=== PATIENT | male | born 1960 | race Caucasian/White ===

== ENCOUNTER 2016-12-15 09:28 | Day surgery (SDC) | payer MEDICAID ==
[2016-12-07 13:28] VITALS: BMI 36.3
[2016-12-15] MEDS ORDERED: Propofol 10 mg/ml Inj (20 ML) ONE ×2 (11:07→11:44)
[2016-12-15] MEDS ORDERED: Midazolam 2 MG/2 ML VIAL ONE (11:08)
[2016-12-15] MEDS ORDERED: Lidocaine 1% Inj (20ml) ONE (11:12)
[2016-12-15] MEDS ORDERED: ePHEDrine 50 mg/ml Inj ONE (11:46)
[2016-12-15] MEDS ORDERED: Sodium Chloride 0.9% 1,000 ML IV SCH (12:15)
[2016-12-15 12:21] VITALS: O2SAT 98
[2016-12-15 13:06] VITALS: BP 117/69; PULSE 59; RESP 16; TEMP 97.6
== END 2016-12-15 13:27 | disposition home or self-care (01) ==
LOC: ENDO 09:28
PROVIDERS: ATTEND Internal Medicine
DX: K20.9 Esophagitis, unspecified (principal); K44.9 Diaphragmatic hernia without obstruction or gangrene; K31.9 Disease of stomach and duodenum, unspecified; Z12.11 Encounter for screening for malignant neoplasm of colon; D12.2 Benign neoplasm of ascending colon; D12.4 Benign neoplasm of descending colon; D12.3 Benign neoplasm of transverse colon; K64.8 Other hemorrhoids; K29.50 Unspecified chronic gastritis without bleeding
CPT/HCPCS: 43239; 45380; 88305; 88342; J2250; J2704; J7040 ×2

== ENCOUNTER 2018-07-15 10:59 | Observation (INO) | payer MEDICAID ==
[2018-07-15 11:12] VITALS: BMI 37.7
--- NOTE | 2018-07-15 11:33 | ED PDOC ---
Arrival/HPI - General Chief Complaint: Chest Pain Historian: Patient - History of Present Illness Narrative History of Present Illness (Text): 07/15/18 11:14 A 58 year old male, whose past medical history includes hypertension, presents to the ED complaining of intermittent left sided chest pain for the past 2 months. Patient was sent in by Dr. Molina for an evaluation. Patient reports pain worsens when laying down, but is unchanged by exertion. Patient also denies any associated fevers, chills, headache, dizziness, shortness of breath, cough, abdominal pain, nausea, vomiting, diarrhea, back pain, neck pain, urinary/bowel changes, or any other complaints. PMD: Dr. Molina Time/Duration: > month (2 months) Symptom Onset: Gradual Symptom Course: Intermittent Activities at Onset: Light Context: Home Past Medical History - Provider Review Nursing Documentation Reviewed: Yes - Infectious Disease Hx of Infectious Diseases: None - Cardiac Hx Pacemaker: No - Neurological Hx Paralysis: No - Hematological/Oncological Hx Blood Transfusions: No Hx Blood Transfusion Reaction: No - Musculoskeletal/Rheumatological Hx Musculoskeletal Disorders: No - Gastrointestinal Hx Gastrointestinal Disorders: Yes Hx Gastritis: Yes - Psychiatric Hx Substance Use: No - Surgical History Hx Orthopedic Surgery: Yes (back and right leg) - Anesthesia Hx Anesthesia Reactions: No Hx Malignant Hyperthermia: No Family/Social History - Physician Review Nursing Documentation Reviewed: Yes Family/Social History: Unknown Family HX Smoking Status: Never Smoked Hx Alcohol Use: No (SOCIALLY) Hx Substance Use: No Allergies/Home Meds Allergies/Adverse Reactions: Allergies No Known Allergies Allergy (Verified 12/23/14 07:15) Home Medications: Home Meds Medication Instructions Recorded Confirmed Dorzolamide 2% [Trusopt] 1 drop OU BID 12/07/16 12/15/16 Benefiber 1 PO TID 12/15/16 Review of Systems - Review of Systems Constitutional: absent: Fevers Respiratory: absent: SOB Cardiovascular: Chest Pain. absent: Palpitations, Edema, Calf Pain, HOLLOWAY Gastrointestinal: absent: Abdominal Pain, Nausea Genitourinary Male: absent: Dysuria, Hematuria Musculoskeletal: absent: Back Pain Skin: absent: Rash Neurological: absent: Headache, Dizziness Endocrine: absent: Diaphoresis Psychiatric: absent: Anxiety, Depression Physical Exam - Physical Exam Narrative Physical Exam (Text): 07/15/18 11:35 Head: Atraumatic. Normocephalic. Eyes: PERRL. EOMI. Conjunctivae are not pale. ENT: Mucous membranes are moist and intact. Oropharynx is clear and symmetric. Neck: Supple. Full ROM. No JVD. No lymphadenopathy. No meningeal signs. Trachea midline. Cardiovascular: Regular rate. Regular rhythm. No murmurs, rubs, or gallops. Distal pulses are 2+ and symmetric. Pulmonary/Chest: No evidence of respiratory distress. Clear to auscultation bilaterally. No wheezing, rales or rhonchi. No tenderness to chest wall. Abdominal: Soft and non-distended. There is no tenderness. No rebound, guarding, or rigidity. No organomegaly. Good bowel sounds. Back: No CVA tenderness. No midline tenderness. Extremities: No edema. No cyanosis. No clubbing. Full range of motion in all extremities. No calf tenderness. Distal pulses intact. Skin: Skin is warm and dry. No petechiae. No purpura. Neurological: Alert, awake, and oriented. Motor and sensory exam intact. Psychiatric: Good eye contact. Normal interaction, affect, and behavior. Vital Signs Reviewed: Yes Vital Signs Temp Pulse Resp BP Pulse Ox 07/15/18 11:01 98.3 F 60 18 145/73 97 Temperature: Afebrile Blood Pressure: Hypertensive Pulse: Regular Respiratory Rate: Normal Appearance: Positive for: Well-Appearing, Non-Toxic, Comfortable Pain Distress: Mild Medical Decision Making ED Course and Treatment: 07/15/18 11:36 Impression: A 58 year old male who presents to the ED for intermittent left sided chest pain. Plan: -- EKG -- Labs -- Chest X-Ray -- Urinalysis -- Reassess and disposition Prior Visits: Notes and results from previous visits were reviewed. Patient was evaluated for chest pain several years ago, had ultrasound done at that time which I reviewed. Progress Notes: Patient is [place] speaking, nurse at bedside translates with his permission. He denies family hx of CAD, denies smoking, denies diabetes, reports hx of hypertension. Pain has been intermittent for several months, worse when laying down. He has not had cardiac evaluation in past. EKG unremarkable. Labs and cxr pending at this time. Patient denies calf pain, there is no hypoxia or associated shortness of breath, no pleuritic pain, no recent travel, no prolonged immobilization. 07/15/18 12:54 Chest X-Ray IMPRESSION: No active disease. - EKG Interpretation EKG Interpretation (Text): EKG at 11:15 normal sinus rhythm rate of 62 with minimal voltage criteria for lvh Interpreted by ED Physician: Yes Type: 12 lead EKG - Scribe Statement The provider has reviewed the documentation as recorded by the Alicia Rincon Provider Scribe Attestation: All medical record entries made by the Wilberibe were at my direction and personally dictated by me. I have reviewed the chart and agree that the record accurately reflects my personal performance of the history, physical exam, medical decision making, and the department course for this patient. I have also personally directed, reviewed, and agree with the discharge instructions and disposition. Disposition/Present on Arrival - Present on Arrival Any Indicators Present on Arrival: No History of DVT/PE: No History of Uncontrolled Diabetes: No Urinary Catheter: No History of Decub. Ulcer: No History Surgical Site Infection Following: None - Disposition Have Diagnosis and Disposition been Completed?: Yes Diagnosis: Chest pain Disposition: HOSPITALIZED Disposition Time: 13:01 Patient Plan: Admission, Observation, Telemetry Condition: FAIR Discharge Instructions (ExitCare): Chest Pain (ED) Forms: [employer] ([place]ican)
[2018-07-15 11:44] LABS: BASO # 0.03 K/mm3 (0.0-2.0); BASO % 0.3 % (0.0-3.0); EOS # 0.1 (0.0-0.7); EOS % 1.4 % (1.5-5.0); HEMOGLOBIN 12.8 g/dL (14.0-18.0); LYMPH # 3.7 (1.2-3.4); LYMPH % 37.1 % (22.0-35.0); MEAN CELL VOLUME 86.9 fl (80.0-105.0); MEAN CORPUSCULAR HEMOGLOBIN 28.4 pg (25.0-35.0); MEAN CORPUSCULAR HGB CONC 32.7 g/dl (31.0-37.0); MEAN PLATELET VOLUME 10.5 fl (7.0-11.0); RBC 4.51 10^6/uL (3.5-6.1); RED CELL DISTRIBUTION WIDTH 15.1 % (11.5-14.5)
[2018-07-15 11:53] LABS: ALB/GLOB RATIO 1.1 (1.1-1.8); ALBUMIN 4.1 g/dL (3.0-4.8); ALT/SGPT 14 U/L (7-56); AMYLASE 76 U/L (35-125); AST/SGOT 27 U/L (17-59); BLOOD UREA NITROGEN 16 mg/dL (7-21); CALCIUM 9.4 mg/dL (8.4-10.5); GFR NON-AFRICAN AMERICAN > 60; INR 1.14; LIPASE 65 U/L (23-300); PARTIAL THROMBOPLASTIN TIME 26.3 Seconds (26.9-38.3); PROTHROMBIN TIME 12.9 SECONDS (9.4-12.5)
[2018-07-15 12:05] LABS: TROPONIN I < 0.01 ng/mL
--- NOTE | 2018-07-15 12:15 | RAD ---
Date of service: 07/15/2018 HISTORY: chest pain COMPARISON: 12/23/2014 TECHNIQUE: 1 view obtained. FINDINGS: LUNGS: No active pulmonary disease. PLEURA: No significant pleural effusion identified, no pneumothorax apparent. CARDIOVASCULAR: No aortic atherosclerotic calcification present. Normal cardiac size. No pulmonary vascular congestion. OSSEOUS STRUCTURES: No significant abnormalities. VISUALIZED UPPER ABDOMEN: Normal. OTHER FINDINGS: None. IMPRESSION: No active disease.
--- NOTE | 2018-07-15 15:27 | CP.PCM.HP ---
<Ramiro Ferrari - Last Filed: 07/15/18 15:20> History of Present Illness - History of Present Illness History of Present Illness: H&P for Dr. Mason CC: Chest Pain Patient is a 58 yo Frisian-speaking male with PMH of HTN, glaucoma, HLD, and GERD [place] [facility] [place] for the last 2-3 months. Patient was seen by his PMD, Dr. Molina, today, who instructed him to proceed to the ED. Patient states that chest pain is left sided, pressure-like, but does not radiate. Patient states the pain only occurs at night when he lies down flat, but does not wake up with chest pain. Patient states that he sometimes wakes up coughing in the middle of the night, but goes away when he drinks water. He states the dry cough over has been intermittent over the last 2 months. Patient denies any dyspnea on exertion, but is unable to walk more than 3 blocks due to pain in his ankles from past surgery for flat feet. Patient admits to some abdominal pain, which he attributes to GERD. Patient denies SOB, n/v/d, fever, chills, diaphoresis, DUENAS, dizziness, fatigue, or palpitations. PMD: Jesse PMH: HTN, glaucoma, HLD, GERD Surg: B/l feet surgery, retinal surgery, cyst removal from back All: NKDA SH: Admits to social EtOH use; denied tobacco or illicit drug use FHx: DM Medications: Protonix, Lipitor, Latanoprost, Dorzolomide/Timolol, Lisinopril/HCTZ Present on Admission - Present on Admission Any Indicators Present on Admission: No Review of Systems - Review of Systems All systems: reviewed and no additional remarkable complaints except (12 point ROS reviewed and is negative other than what is stated in HPI.) Past Patient History - Infectious Disease Hx of Infectious Diseases: None - Past Medical History & Family History Past Medical History?: Yes - Past Social History Smoking Status: Never Smoked - CARDIAC Hx Pacemaker: No - NEUROLOGICAL Hx Paralysis: No - HEMATOLOGICAL/ONCOLOGICAL Hx Blood Transfusions: No Hx Blood Transfusion Reaction: No - MUSCULOSKELETAL/RHEUMATOLOGICAL Hx Musculoskeletal Disorders: No - GASTROINTESTINAL Hx Gastrointestinal Disorders: Yes Hx Gastritis: Yes - PSYCHIATRIC Hx Substance Use: No - SURGICAL HISTORY Hx Orthopedic Surgery: Yes (back and right leg) - ANESTHESIA Hx Anesthesia Reactions: No Hx Malignant Hyperthermia: No Meds Allergies/Adverse Reactions: Allergies Allergy/AdvReac Type Severity Reaction Status Date / Time No Known Allergies Allergy Verified 12/23/14 07:15 Physical Exam - Constitutional Appears: No Acute Distress - Head Exam Head Exam: ATRAUMATIC, NORMAL INSPECTION, NORMOCEPHALIC - Eye Exam Eye Exam: EOMI, Normal appearance Pupil Exam: NORMAL ACCOMODATION, PERRL - ENT Exam ENT Exam: Mucous Membranes Moist, Normal Exam - Neck Exam Neck exam: Positive for: Normal Inspection - Respiratory Exam Respiratory Exam: Clear to Auscultation Bilateral. absent: Rales, Rhonchi, Wheezes - Cardiovascular Exam Cardiovascular Exam: RRR, +S1, +S2. absent: Clicks, Diastolic murmur, Gallop, Rubs, Systolic Murmur - GI/Abdominal Exam GI & Abdominal Exam: Soft, Tenderness (RUQ). absent: Distended, Guarding, Rebound - Extremities Exam Extremities exam: Positive for: pedal edema (1+ b/l) - Back Exam Back exam: NORMAL INSPECTION - Neurological Exam Neurological exam: Alert, CN II-XII Intact, Oriented x3 - Psychiatric Exam Psychiatric exam: Normal Affect, Normal Mood - Skin Skin Exam: Dry, Intact, Normal Color, Warm Results - Vital Signs Recent Vital Signs: Last Vital Signs Temp 98.3 F 07/15/18 11:01 Pulse 60 07/15/18 11:01 Resp 18 07/15/18 11:01 BP 145/73 07/15/18 11:01 Pulse Ox 97 07/15/18 11:01 - Labs Result Diagrams: 07/15/18 11:32 07/15/18 11:32 Labs: Laboratory Results - last 24 hr 07/15/18 07/15/18 07/15/18 11:32 11:32 11:32 WBC 10.0 RBC 4.51 Hgb 12.8 L Hct 39.2 L MCV 86.9 MCH 28.4 MCHC 32.7 RDW 15.1 H Plt Count 295 MPV 10.5 Neut % (Auto) 51.2 Lymph % (Auto) 37.1 H Faulk % (Auto) 10.0 H Eos % (Auto) 1.4 L Baso % (Auto) 0.3 Lymph # (Auto) 3.7 H Faulk # (Auto) 1.0 H Eos # (Auto) 0.1 Baso # (Auto) 0.03 Absolute Neuts (auto) 5.15 PT 12.9 H INR 1.14 APTT 26.3 L Sodium 141 Potassium 3.6 Chloride 104 Carbon Dioxide 29 Anion Gap 11 BUN 16 Creatinine 0.9 Est GFR ( Amer) > 60 Est GFR (Non-Af Amer) > 60 Random Glucose 83 Calcium 9.4 Magnesium 1.9 Total Bilirubin 0.2 AST 27 ALT 14 Alkaline Phosphatase 76 Lactate Dehydrogenase 428 Total Creatine Kinase 147 Troponin I < 0.01 NT-Pro-B Natriuret Pep 12.0 Total Protein 7.8 Albumin 4.1 Globulin 3.8 Albumin/Globulin Ratio 1.1 Amylase 76 Lipase 65 Assessment & Plan - Assessment and Plan (Free Text) Assessment: 58 yo M with PMH of HTN, HLD, glaucoma, and GERD will be admitted for evaluation and treatment for chest pain to rule out acute coronary syndrome. Plan: 1. Chest Pain - Will r/o ACS - EKG showed NSR, rate 62, LVH - Troponin negative x1, will trend x2 - CXR negative - Echo (2013) showed EF 62%, will obtain new Echo - TSH, lipid panel, HgbA1c ordered - Cont Lipitor - ASA 81 mg - Cardiology consulted 2. Abdominal pain - RUQ tenderness - LFT WNL - RUQ US ordered 3. HTN - Cont home Lisinopril/HCTZ 4. HLD - Cont home Lipitor 5. GERD - Cont home Protonix 6. Glaucoma - Cont home Latanoprost and Dorzolomide/Timolol GI/DVT PPx - Lovenox - Protonix Patient seen and discussed in detail with Dr. Mason. Franklin Ferrari DO PGY2 <Regulo Mason - Last Filed: 07/16/18 14:01> Results - Vital Signs Recent Vital Signs: Last Vital Signs Temp 97.5 F L 07/16/18 08:59 Pulse 61 07/16/18 10:00 Resp 20 07/16/18 08:59 BP 149/64 07/16/18 09:41 Pulse Ox 96 07/16/18 08:59 - Labs Result Diagrams: 07/16/18 05:00 07/16/18 05:00 Labs: Laboratory Results - last 24 hr 07/15/18 07/15/18 07/15/18 15:48 17:20 17:20 WBC RBC Hgb Hct MCV MCH MCHC RDW Plt Count MPV Neut % (Auto) Lymph % (Auto) Faulk % (Auto) Eos % (Auto) Baso % (Auto) Lymph # (Auto) Faulk # (Auto) Eos # (Auto) Baso # (Auto) Absolute Neuts (auto) Sodium Potassium Chloride Carbon Dioxide Anion Gap BUN Creatinine Est GFR ( Amer) Est GFR (Non-Af Amer) Random Glucose Hemoglobin A1c Calcium Phosphorus Magnesium Total Bilirubin AST ALT Alkaline Phosphatase Troponin I 0.01 Total Protein Albumin Globulin Albumin/Globulin Ratio Triglycerides Cholesterol LDL Cholesterol Direct HDL Cholesterol TSH 3rd Generation 2.09 Urine Color Yellow Urine Appearance Clear Urine pH 7.0 Ur Specific [place] 1.015 Urine Protein Negative Urine Glucose (UA) Negative Urine Ketones Negative Urine Blood Small H Urine Nitrate Negative Urine Bilirubin Negative Urine Urobilinogen 0.2 Ur Leukocyte Esterase Negative Urine RBC 2 - 5 H Urine WBC 0 - 2 Ur Epithelial Cells 0 - 2 07/15/18 07/15/18 07/16/18 17:30 23:30 05:00 WBC 8.6 RBC 4.50 Hgb 12.6 L Hct 39.4 L MCV 87.6 MCH 28.0 MCHC 32.0 RDW 15.1 H Plt Count 280 MPV 10.7 Neut % (Auto) 50.5 Lymph % (Auto) 38.7 H Faulk % (Auto) 9.0 H Eos % (Auto) 1.5 Baso % (Auto) 0.3 Lymph # (Auto) 3.3 Faulk # (Auto) 0.8 H Eos # (Auto) 0.1 Baso # (Auto) 0.03 Absolute Neuts (auto) 4.33 Sodium Potassium Chloride Carbon Dioxide Anion Gap BUN Creatinine Est GFR ( Amer) Est GFR (Non-Af Amer) Random Glucose Hemoglobin A1c 6.1 Calcium Phosphorus Magnesium Total Bilirubin AST ALT Alkaline Phosphatase Troponin I 0.02 D Total Protein Albumin Globulin Albumin/Globulin Ratio Triglycerides Cholesterol LDL Cholesterol Direct HDL Cholesterol TSH 3rd Generation Urine Color Urine Appearance Urine pH Ur Specific [place] Urine Protein Urine Glucose (UA) Urine Ketones Urine Blood Urine Nitrate Urine Bilirubin Urine Urobilinogen Ur Leukocyte Esterase Urine RBC Urine WBC Ur Epithelial Cells 07/16/18 05:00 WBC RBC Hgb Hct MCV MCH MCHC RDW Plt Count MPV Neut % (Auto) Lymph % (Auto) Faulk % (Auto) Eos % (Auto) Baso % (Auto) Lymph # (Auto) Faulk # (Auto) Eos # (Auto) Baso # (Auto) Absolute Neuts (auto) Sodium 139 Potassium 3.7 Chloride 104 Carbon Dioxide 30 Anion Gap 9 L BUN 13 Creatinine 0.9 Est GFR ( Amer) > 60 Est GFR (Non-Af Amer) > 60 Random Glucose 97 Hemoglobin A1c Calcium 9.0 Phosphorus 3.3 Magnesium 1.9 Total Bilirubin 0.4 AST 32 ALT 21 Alkaline Phosphatase 79 Troponin I Total Protein 7.3 Albumin 3.7 Globulin 3.6 Albumin/Globulin Ratio 1.0 L Triglycerides 157 Cholesterol 194 LDL Cholesterol Direct 133 H HDL Cholesterol 31 TSH 3rd Generation Urine Color Urine Appearance Urine pH Ur Specific [place] Urine Protein Urine Glucose (UA) Urine Ketones Urine Blood Urine Nitrate Urine Bilirubin Urine Urobilinogen Ur Leukocyte Esterase Urine RBC Urine WBC Ur Epithelial Cells Attending/Attestation - Attestation I have personally seen and examined this patient.: Yes I have fully participated in the care of the patient.: Yes I have reviewed all pertinent clinical information: Yes Notes (Text): 07/16/18 13:59 Medical record note made by the resident after discussion with my direction and input after the patient was personally seen and examined by me. I have reviewed the chart and agree that the record accurately reflects by personal performance of the history, physical exam, data review, and medical decision-making, in the course for the patient. I have also personally directed the plan of care. 58 year obese old male with past medical history of hypertension, glaucoma, hyperlipidemia, GERD, bilateral feet surgery, is admitted with atypical chest pain.EKG is negative for ischemic changes.We will get serial troponins and will monitor patient in telemetry for arrhythmia. We will also get Echo and cardiology consult. Management plan was discussed in detail with patient. Education was provided.
[2018-07-15 15:57] LABS: URINE BILIRUBIN NEGATIVE (NEGATIVE); URINE BLOOD SMALL (NEGATIVE); URINE GLUCOSE (UA) NEGATIVE (NEGATIVE); URINE LEUKOCYTE ESTERASE NEGATIVE Leu/uL (NEGATIVE); URINE PROTEIN NEGATIVE mg/dL (<30 mg/dL); URINE UROBILINOGEN 0.2 E.U./dL (<1 E.U./dL)
[2018-07-15 15:59] LABS: URINE APPEARANCE CLEAR (CLEAR); URINE COLOR YELLOW (YELLOW)
[2018-07-15 16:05] LABS: URINE EPITHELIAL CELLS 0 - 2 /hpf (0-5); URINE WBC 0 - 2 /hpf (0-6)
[2018-07-15] MEDS: Dorzolamide 2% Opht Sol 10ml OU SCH (17:16)
[2018-07-15] MEDS ORDERED: Dorzolamide 2%/Timolol 0.5% 100 DROP/10 ML BOTTLE OU SCH (18:00)
--- NOTE | 2018-07-15 18:16 | US ---
Date of service: 07/15/2018 HISTORY: RUQ pain COMPARISON: None available TECHNIQUE: Sonographic evaluation of the right upper quadrant of the abdomen. FINDINGS: Examination markedly limited by habitus. LIVER: Measures 17 cm in length.Echogenic liver may be seen in setting of hepatic parenchymal disease or fatty infiltration. No focal hepatic mass identified. The main portal vein appears patent with normal directional flow. No intrahepatic bile duct dilatation. GALLBLADDER: No gallstones. No gallbladder wall thickening or pericholecystic edema. Negative sonographic Ellington's sign as assessed by the agile qa tester. COMMON BILE DUCT: Measures 6 mm. PANCREAS: Not well-visualized. RIGHT KIDNEY: Measures approximately 12.8 x 5.4 x 6.0 cm. No obstructing calculus or hydronephrosis identified. Two lower pole cysts evident measuring approximately 2.4 cm and 3.9 cm in maximum dimensions. AORTA: Limited visualization appears grossly unremarkable. IVC: Limited visualization appears grossly unremarkable. OTHER FINDINGS: None . IMPRESSION: Examination markedly limited by habitus. Echogenic liver may be seen in setting of hepatic parenchymal disease or fatty infiltration. Right renal cyst measuring approximately 2.4 cm and 3.9 cm arising from the lower pole.
[2018-07-15 18:18] VITALS: RESP 20
--- NOTE | 2018-07-15 22:14 | CARD ---
APPROVED REPORT Date of service: 07/15/2018 EKG Measurement Heart [id number] <Conclusion> Normal sinus rhythm Minimal voltage criteria for LVH, may be normal variant Borderline ECG
[2018-07-15] MEDS ORDERED: Pneumococcal 23-Valent Vaccine IM ONE (22:24)
[2018-07-16] MEDS ORDERED: Pantoprazole 40 mg EC Tab PO SCH ×2 (06:00)
[2018-07-16 07:05] LABS: BASO # 0.03 K/mm3 (0.0-2.0); BASO % 0.3 % (0.0-3.0); EOS # 0.1 (0.0-0.7); EOS % 1.5 % (1.5-5.0); HEMOGLOBIN 12.6 g/dL (14.0-18.0); LYMPH # 3.3 (1.2-3.4); LYMPH % 38.7 % (22.0-35.0); MEAN CELL VOLUME 87.6 fl (80.0-105.0); MEAN PLATELET VOLUME 10.7 fl (7.0-11.0); MONO # 0.8 (0.1-0.6); RBC 4.5 10^6/uL (3.5-6.1); RED CELL DISTRIBUTION WIDTH 15.1 % (11.5-14.5); WHITE BLOOD COUNT 8.6 10^3/uL (4.5-11.0)
[2018-07-16 07:23] LABS: ALBUMIN 3.7 g/dL (3.0-4.8); ALT/SGPT 21 U/L (7-56); AST/SGOT 32 U/L (17-59); BLOOD UREA NITROGEN 13 mg/dL (7-21); GFR NON-AFRICAN AMERICAN > 60; HDL CHOLESTEROL 31 mg/dL (29-60)
[2018-07-16 07:25] LABS: LDL CHOLESTEROL 133 mg/dL (0-129)
[2018-07-16 09:00] VITALS: TEMP 97.5; O2SAT 96
[2018-07-16] MEDS: Dorzolamide 2% Opht Sol 10ml OU SCH (09:41)
[2018-07-16 09:42] VITALS: BP 149/64
[2018-07-16] MEDS ORDERED: Enoxaparin 40 mg Syringe SC SCH (10:00)
--- NOTE | 2018-07-16 11:47 | CP.PCM.CON ---
History of Present Illness - History of Present Illness History of Present Illness: Awake, alert, denies chest pain Reason for consultation: Cardiac evaluation of chest pain Brief history of present illness: A 58 year obese old male, armenian speaking, who came in to the ER due to left sided chest pressure, non radiating off and on for the last 2-3 months. Pain at site is reproducible. History of hypertension, glaucoma, hyperlipidemia, GERD, bilateral feet surgery, retinal surgery cyst removal from back. Denies smoking. Socially drinks alcohol. Seen and examined by me and Dr. Millan Review of Systems - Review of Systems All systems: reviewed and no additional remarkable complaints except Review of Systems: as per HPI Past Patient History - Infectious Disease Hx of Infectious Diseases: None - Past Medical History & Family History Past Medical History?: Yes - Past Social History Smoking Status: Never Smoked - CARDIAC Hx Cardiac Disorders: Yes Hx Hypercholesterolemia: Yes Hx Pacemaker: No - PULMONARY Hx Respiratory Disorders: No - NEUROLOGICAL Hx Neurological Disorder: No - HEENT Hx HEENT Problems: Yes (eyeglasses) Hx Glaucoma: Yes (sx both eyes) Other/Comment: detached retina - RENAL Hx Chronic Kidney Disease: No - ENDOCRINE/METABOLIC Hx Endocrine Disorders: No - HEMATOLOGICAL/ONCOLOGICAL Hx Blood Disorders: No - INTEGUMENTARY Hx Dermatological Problems: Yes Other/Comment: thick toenails, surgical scars to both inner r and left foot - MUSCULOSKELETAL/RHEUMATOLOGICAL Hx Falls: No - GASTROINTESTINAL Hx Gastrointestinal Disorders: Yes (obese, gastritis) - GENITOURINARY/GYNECOLOGICAL Hx Genitourinary Disorders: No - PSYCHIATRIC Hx Substance Use: No - SURGICAL HISTORY Hx Surgeries: Yes Hx Orthopedic Surgery: Yes (back and right leg) Other/Comment: sx to both feet - ANESTHESIA Hx Anesthesia Reactions: No Hx Malignant Hyperthermia: No Meds Allergies/Adverse Reactions: Allergies Allergy/AdvReac Type Severity Reaction Status Date / Time No Known Allergies Allergy Verified 12/23/14 07:15 - Medications Medications: Current Medications Aspirin (Ecotrin) 81 mg PO DAILY [facility] Last Admin: 07/16/18 09:40 Dose: 81 mg Atorvastatin Calcium (Lipitor) 40 mg PO DIN [facility] Dorzolamide HCl (Trusopt) 0 ml OU TID [facility] Last Admin: 07/16/18 09:41 Dose: 1 drop Enoxaparin Sodium (Lovenox) 40 mg SC DAILY [facility]; Protocol Last Admin: 07/16/18 09:40 Dose: 40 mg Hydrochlorothiazide (Microzide) 12.5 mg PO DAILY [facility] Last Admin: 07/16/18 09:41 Dose: 12.5 mg Latanoprost (Xalatan Opht) 0 ml OU HS [facility] Lisinopril (Zestril) 10 mg PO DAILY [facility] Last Admin: 07/16/18 09:41 Dose: 10 mg Pantoprazole Sodium (Protonix Ec Tab) 40 mg PO 0600 [facility] Last Admin: 07/16/18 05:31 Dose: 40 mg Timolol Maleate (Timoptic 0.5% Ophth Soln) 0 drop OU BID [facility] Last Admin: 07/16/18 09:41 Dose: 1 drop Physical Exam - Constitutional Appears: Non-toxic, No Acute Distress - Head Exam Head Exam: NORMAL INSPECTION, NORMOCEPHALIC - Eye Exam Eye Exam: Normal appearance Pupil Exam: NORMAL ACCOMODATION - ENT Exam ENT Exam: Mucous Membranes Moist, Normal Exam - Respiratory Exam Respiratory Exam: Decreased Breath Sounds, Clear to Auscultation Bilateral, NORMAL BREATHING PATTERN - Cardiovascular Exam Cardiovascular Exam: Bradycardia, +S1, +S2 Additional comments: denies chest pain left chest with tenderness - GI/Abdominal Exam GI & Abdominal Exam: Normal Bowel Sounds, Soft - Neurological Exam Neurological exam: Alert, Oriented x3 - Psychiatric Exam Psychiatric exam: Normal Affect, Normal Mood - Skin Skin Exam: Dry, Normal Color, Warm Results - Vital Signs Recent Vital Signs: Last Vital Signs Temp 97.5 F L 07/16/18 08:59 Pulse 64 07/16/18 09:41 Resp 20 07/16/18 08:59 BP 149/64 07/16/18 09:41 Pulse Ox 96 07/16/18 08:59 - Labs Result Diagrams: 07/16/18 05:00 07/16/18 05:00 Labs: Laboratory Results - last 24 hr 07/15/18 07/15/18 07/15/18 11:32 11:32 11:32 WBC 10.0 RBC 4.51 Hgb 12.8 L Hct 39.2 L MCV 86.9 MCH 28.4 MCHC 32.7 RDW 15.1 H Plt Count 295 MPV 10.5 Neut % (Auto) 51.2 Lymph % (Auto) 37.1 H Lyon % (Auto) 10.0 H Eos % (Auto) 1.4 L Baso % (Auto) 0.3 Lymph # (Auto) 3.7 H Lyon # (Auto) 1.0 H Eos # (Auto) 0.1 Baso # (Auto) 0.03 Absolute Neuts (auto) 5.15 PT 12.9 H INR 1.14 APTT 26.3 L Sodium 141 Potassium 3.6 Chloride 104 Carbon Dioxide 29 Anion Gap 11 BUN 16 Creatinine 0.9 Est GFR ( Amer) > 60 Est GFR (Non-Af Amer) > 60 Random Glucose 83 Hemoglobin A1c Calcium 9.4 Phosphorus Magnesium 1.9 Total Bilirubin 0.2 AST 27 ALT 14 Alkaline Phosphatase 76 Lactate Dehydrogenase 428 Total Creatine Kinase 147 Troponin I < 0.01 NT-Pro-B Natriuret Pep 12.0 Total Protein 7.8 Albumin 4.1 Globulin 3.8 Albumin/Globulin Ratio 1.1 Triglycerides Cholesterol LDL Cholesterol Direct HDL Cholesterol Amylase 76 Lipase 65 TSH 3rd Generation Urine Color Urine Appearance Urine pH Ur Specific [place] Urine Protein Urine Glucose (UA) Urine Ketones Urine Blood Urine Nitrate Urine Bilirubin Urine Urobilinogen Ur Leukocyte Esterase Urine RBC Urine WBC Ur Epithelial Cells 07/15/18 07/15/18 07/15/18 15:48 17:20 17:20 WBC RBC Hgb Hct MCV MCH MCHC RDW Plt Count MPV Neut % (Auto) Lymph % (Auto) Lyon % (Auto) Eos % (Auto) Baso % (Auto) Lymph # (Auto) Lyon # (Auto) Eos # (Auto) Baso # (Auto) Absolute Neuts (auto) PT INR APTT Sodium Potassium Chloride Carbon Dioxide Anion Gap BUN Creatinine Est GFR ( Amer) Est GFR (Non-Af Amer) Random Glucose Hemoglobin A1c Calcium Phosphorus Magnesium Total Bilirubin AST ALT Alkaline Phosphatase Lactate Dehydrogenase Total Creatine Kinase Troponin I 0.01 NT-Pro-B Natriuret Pep Total Protein Albumin Globulin Albumin/Globulin Ratio Triglycerides Cholesterol LDL Cholesterol Direct HDL Cholesterol Amylase Lipase TSH 3rd Generation 2.09 Urine Color Yellow Urine Appearance Clear Urine pH 7.0 Ur Specific [place] 1.015 Urine Protein Negative Urine Glucose (UA) Negative Urine Ketones Negative Urine Blood Small H Urine Nitrate Negative Urine Bilirubin Negative Urine Urobilinogen 0.2 Ur Leukocyte Esterase Negative Urine RBC 2 - 5 H Urine WBC 0 - 2 Ur Epithelial Cells 0 - 2 07/15/18 07/15/18 07/16/18 17:30 23:30 05:00 WBC 8.6 RBC 4.50 Hgb 12.6 L Hct 39.4 L MCV 87.6 MCH 28.0 MCHC 32.0 RDW 15.1 H Plt Count 280 MPV 10.7 Neut % (Auto) 50.5 Lymph % (Auto) 38.7 H Lyon % (Auto) 9.0 H Eos % (Auto) 1.5 Baso % (Auto) 0.3 Lymph # (Auto) 3.3 Lyon # (Auto) 0.8 H Eos # (Auto) 0.1 Baso # (Auto) 0.03 Absolute Neuts (auto) 4.33 PT INR APTT Sodium Potassium Chloride Carbon Dioxide Anion Gap BUN Creatinine Est GFR ( Amer) Est GFR (Non-Af Amer) Random Glucose Hemoglobin A1c 6.1 Calcium Phosphorus Magnesium Total Bilirubin AST ALT Alkaline Phosphatase Lactate Dehydrogenase Total Creatine Kinase Troponin I 0.02 D NT-Pro-B Natriuret Pep Total Protein Albumin Globulin Albumin/Globulin Ratio Triglycerides Cholesterol LDL Cholesterol Direct HDL Cholesterol Amylase Lipase TSH 3rd Generation Urine Color Urine Appearance Urine pH Ur Specific [place] Urine Protein Urine Glucose (UA) Urine Ketones Urine Blood Urine Nitrate Urine Bilirubin Urine Urobilinogen Ur Leukocyte Esterase Urine RBC Urine WBC Ur Epithelial Cells 07/16/18 05:00 WBC RBC Hgb Hct MCV MCH MCHC RDW Plt Count MPV Neut % (Auto) Lymph % (Auto) Lyon % (Auto) Eos % (Auto) Baso % (Auto) Lymph # (Auto) Lyon # (Auto) Eos # (Auto) Baso # (Auto) Absolute Neuts (auto) PT INR APTT Sodium 139 Potassium 3.7 Chloride 104 Carbon Dioxide 30 Anion Gap 9 L BUN 13 Creatinine 0.9 Est GFR ( Amer) > 60 Est GFR (Non-Af Amer) > 60 Random Glucose 97 Hemoglobin A1c Calcium 9.0 Phosphorus 3.3 Magnesium 1.9 Total Bilirubin 0.4 AST 32 ALT 21 Alkaline Phosphatase 79 Lactate Dehydrogenase Total Creatine Kinase Troponin I NT-Pro-B Natriuret Pep Total Protein 7.3 Albumin 3.7 Globulin 3.6 Albumin/Globulin Ratio 1.0 L Triglycerides 157 Cholesterol 194 LDL Cholesterol Direct 133 H HDL Cholesterol 31 Amylase Lipase TSH 3rd Generation Urine Color Urine Appearance Urine pH Ur Specific [place] Urine Protein Urine Glucose (UA) Urine Ketones Urine Blood Urine Nitrate Urine Bilirubin Urine Urobilinogen Ur Leukocyte Esterase Urine RBC Urine WBC Ur Epithelial Cells Assessment & Plan - Assessment and Plan (Free Text) Assessment: Brief history of present illness: A 58 year obese old male, armenian speaking, who came in to the ER due to left sided chest pressure, non radiating off and on for the last 2-3 months.. History of hypertension, glaucoma, hyperlipidemia, GERD, bilateral feet surgery, retinal surgery cyst removal from back. Denies smoking. Socially drinks alcohol. Troponin negative x 3. EKG showed normal sinus rhythm, no ischemia. Chest X ray unremarkable. Had stress test on 12/15/13 with normal results. No previous echo done, will order Echo today to evaluate LV function. Chest pressure musculoskeletal in nature. Pain reproducible. NSAID PRN. Rule out acute coronary syndrome. Out patient stress for risk stratific ation. Consider GI work up. Cardiac status stable. Discontinue telemetry. May discharge home from cardiac standpoint. Plan: Denies chest pain NSAID PRN for musculoskeletal chest pressure Out patient stress for risk stratification Consider GI work up. Cardiac status stable On ASA 81 mg daily,Lipitor 40 mg daily, Lovenox 40 mg daily Lisinopril 10 mg daily Heart rate stable Blood pressure stable Discontinue telemetry Continue current treatment Continue current medications May discharge home from cardiac standpoint. Will follow up Plan and treatment discussed with Dr. Millan Thank you Dr. Worthington for the opportunity of taking care Tigre Claros - Date & Time Date: 07/16/18 Time: 07:15
--- NOTE | 2018-07-16 13:22 | CP.PCM.DIS ---
<Sd Trujillo - Last Filed: 07/16/18 13:17> Provider - Provider Date of Admission: 07/15/18 13:59 Attending physician: David Worthington MD Consults: 07/15/18 15:05 Cardiology Consult Routine Comment: Consulting Provider: Regulo Millan Consulting Physician: Regulo Millan Reason for Consult: chest pain 07/15/18 22:09 Social Work Referral Routine Comment: d/c plan Physician Instructions: Reason For Exam: assess 07/15/18 22:24 Inpatient WASH HELPER Core Measures Referral Routine Comment: cp Physician Instructions: Reason For Exam: assess Transition In Care/Readmission Reduction Routine Comment: cp Physician Instructions: Reason For Exam: assess Time Spent in preparation of Discharge (in minutes): 35 Hospital Course - Lab Results Lab Results: Most Recent Lab Values WBC 8.6 10^3/uL (4.5-11.0) 07/16/18 05:00 RBC 4.50 10^6/uL (3.5-6.1) 07/16/18 05:00 Hgb 12.6 g/dL (14.0-18.0) L 07/16/18 05:00 Hct 39.4 % (42.0-52.0) L 07/16/18 05:00 MCV 87.6 fl (80.0-105.0) 07/16/18 05:00 MCH 28.0 pg (25.0-35.0) 07/16/18 05:00 MCHC 32.0 g/dl (31.0-37.0) 07/16/18 05:00 RDW 15.1 % (11.5-14.5) H 07/16/18 05:00 Plt Count 280 10^3/uL (120.0-450.0) 07/16/18 05:00 MPV 10.7 fl (7.0-11.0) 07/16/18 05:00 Neut % (Auto) 50.5 % (50.0-68.0) 07/16/18 05:00 Lymph % (Auto) 38.7 % (22.0-35.0) H 07/16/18 05:00 [place] % (Auto) 9.0 % (1.0-6.0) H 07/16/18 05:00 Eos % (Auto) 1.5 % (1.5-5.0) 07/16/18 05:00 Baso % (Auto) 0.3 % (0.0-3.0) 07/16/18 05:00 Lymph # (Auto) 3.3 (1.2-3.4) 07/16/18 05:00 Isabel[place] # (Auto) 0.8 (0.1-0.6) H 07/16/18 05:00 Eos # (Auto) 0.1 (0.0-0.7) 07/16/18 05:00 Baso # (Auto) 0.03 K/mm3 (0.0-2.0) 07/16/18 05:00 Absolute Neuts (auto) 4.33 (1.4-6.5) 07/16/18 05:00 PT 12.9 SECONDS (9.4-12.5) H 07/15/18 11:32 INR 1.14 07/15/18 11:32 APTT 26.3 Seconds (26.9-38.3) L 07/15/18 11:32 Sodium 139 mmol/L (132-148) 07/16/18 05:00 Potassium 3.7 mmol/L (3.6-5.0) 07/16/18 05:00 Chloride 104 mmol/L (98-107) 07/16/18 05:00 Carbon Dioxide 30 mmol/L (21-33) 07/16/18 05:00 Anion Gap 9 (10-20) L 07/16/18 05:00 BUN 13 mg/dL (7-21) 07/16/18 05:00 Creatinine 0.9 mg/dl (0.8-1.5) 07/16/18 05:00 Est GFR ( Amer) > 60 07/16/18 05:00 Est GFR (Non-Af Amer) > 60 07/16/18 05:00 Random Glucose 97 mg/dL (70-110) 07/16/18 05:00 Hemoglobin A1c 6.1 % (4.2-6.5) 07/15/18 17:30 Calcium 9.0 mg/dL (8.4-10.5) 07/16/18 05:00 Phosphorus 3.3 mg/dL (2.5-4.5) 07/16/18 05:00 Magnesium 1.9 mg/dL (1.7-2.2) 07/16/18 05:00 Total Bilirubin 0.4 mg/dL (0.2-1.3) 07/16/18 05:00 AST 32 U/L (17-59) 07/16/18 05:00 ALT 21 U/L (7-56) 07/16/18 05:00 Alkaline Phosphatase 79 U/L (38-126) 07/16/18 05:00 Lactate Dehydrogenase 428 U/L (333-699) 07/15/18 11:32 Total Creatine Kinase 147 U/L (35-230) 07/15/18 11:32 Troponin I 0.02 ng/mL D 07/15/18 23:30 NT-Pro-B Natriuret Pep 12.0 pg/mL (0-450) 07/15/18 11:32 Total Protein 7.3 g/dL (5.8-8.3) 07/16/18 05:00 Albumin 3.7 g/dL (3.0-4.8) 07/16/18 05:00 Globulin 3.6 gm/dL 07/16/18 05:00 Albumin/Globulin Ratio 1.0 (1.1-1.8) L 07/16/18 05:00 Triglycerides 157 mg/dL (35-160) 07/16/18 05:00 Cholesterol 194 mg/dL (130-200) 07/16/18 05:00 LDL Cholesterol Direct 133 mg/dL (0-129) H 07/16/18 05:00 HDL Cholesterol 31 mg/dL (29-60) 07/16/18 05:00 Amylase 76 U/L (35-125) 07/15/18 11:32 Lipase 65 U/L (23-300) 07/15/18 11:32 TSH 3rd Generation 2.09 mIU/mL (0.46-4.68) 07/15/18 17:20 Urine Color Yellow (YELLOW) 07/15/18 15:48 Urine Appearance Clear (CLEAR) 07/15/18 15:48 Urine pH 7.0 (4.7-8.0) 07/15/18 15:48 Ur Specific [place] 1.015 (1.005-1.035) 07/15/18 15:48 Urine Protein Negative mg/dL (<30 mg/dL) 07/15/18 15:48 Urine Glucose (UA) Negative mg/dL (NEGATIVE) 07/15/18 15:48 Urine Ketones Negative mg/dL (NEGATIVE) 07/15/18 15:48 Urine Blood Small (NEGATIVE) H 07/15/18 15:48 Urine Nitrate Negative (NEGATIVE) 07/15/18 15:48 Urine Bilirubin Negative (NEGATIVE) 07/15/18 15:48 Urine Urobilinogen 0.2 E.U./dL (<1 E.U./dL) 07/15/18 15:48 Ur Leukocyte Esterase Negative Suresh/uL (NEGATIVE) 07/15/18 15:48 Urine RBC 2 - 5 /hpf (0-2) H 07/15/18 15:48 Urine WBC 0 - 2 /hpf (0-6) 07/15/18 15:48 Ur Epithelial Cells 0 - 2 /hpf (0-5) 07/15/18 15:48 - Hospital Course Hospital Course: 58 year obese old male with past medical history of hypertension, glaucoma, hyperlipidemia, GERD, bilateral feet surgery, retinal surgery who came in to the ER due to left sided chest pressure, non radiating off and on for the last 2 months. EKG was done and showed normal sinus rhythm. Troponin was negative x3. Chest xray was unremarkable. Patient had echo done today did not show any ischemia, normal EF. Chest pain has resolved. Patient was seen by cardiology and cleared on their end. He may follow up outpatient with cardiology for stress test. Continue same home medications. Discharge Exam - Head Exam Head Exam: NORMAL INSPECTION, NORMOCEPHALIC - Respiratory Exam Respiratory Exam: NORMAL BREATHING PATTERN - Cardiovascular Exam Cardiovascular Exam: REGULAR RHYTHM, +S1, +S2 Discharge Plan - Follow Up Plan Condition: FAIR Disposition: HOME/ ROUTINE Instructions: Chest Pain (DC) Additional Instructions: - Please follow up with your Primary Physician (Dr. Molina) within 3-4 days of discharge. - Please follow up with the Credit Compliance Officer (Dr. Millan) within 1 week of discharge for outpatient stress test. - Please resume your home medications as prescribed. - Please return to the nearest emergency department if your symptoms (chest pain, nausea, vomiting) reoccur. Referrals: Regulo Millan MD [Staff Provider] - <Regulo Mason - Last Filed: 07/16/18 13:58> Provider - Provider Date of Admission: 07/15/18 13:59 Attending physician: David Worthington MD Consults: 07/15/18 15:05 Cardiology Consult Routine Comment: Consulting Provider: Regulo Millan Consulting Physician: Regulo Millan Reason for Consult: chest pain 07/15/18 22:09 Social Work Referral Routine Comment: d/c plan Physician Instructions: Reason For Exam: assess 07/15/18 22:24 Inpatient WASH HELPER Core Measures Referral Routine Comment: cp Physician Instructions: Reason For Exam: assess Transition In Care/Readmission Reduction Routine Comment: cp Physician Instructions: Reason For Exam: assess Hospital Course - Lab Results Lab Results: Most Recent Lab Values WBC 8.6 10^3/uL (4.5-11.0) 07/16/18 05:00 RBC 4.50 10^6/uL (3.5-6.1) 07/16/18 05:00 Hgb 12.6 g/dL (14.0-18.0) L 07/16/18 05:00 Hct 39.4 % (42.0-52.0) L 07/16/18 05:00 MCV 87.6 fl (80.0-105.0) 07/16/18 05:00 MCH 28.0 pg (25.0-35.0) 07/16/18 05:00 MCHC 32.0 g/dl (31.0-37.0) 07/16/18 05:00 RDW 15.1 % (11.5-14.5) H 07/16/18 05:00 Plt Count 280 10^3/uL (120.0-450.0) 07/16/18 05:00 MPV 10.7 fl (7.0-11.0) 07/16/18 05:00 Neut % (Auto) 50.5 % (50.0-68.0) 07/16/18 05:00 Lymph % (Auto) 38.7 % (22.0-35.0) H 07/16/18 05:00 Isabela % (Auto) 9.0 % (1.0-6.0) H 07/16/18 05:00 Eos % (Auto) 1.5 % (1.5-5.0) 07/16/18 05:00 Baso % (Auto) 0.3 % (0.0-3.0) 07/16/18 05:00 Lymph # (Auto) 3.3 (1.2-3.4) 07/16/18 05:00 [place] # (Auto) 0.8 (0.1-0.6) H 07/16/18 05:00 Eos # (Auto) 0.1 (0.0-0.7) 07/16/18 05:00 Baso # (Auto) 0.03 K/mm3 (0.0-2.0) 07/16/18 05:00 Absolute Neuts (auto) 4.33 (1.4-6.5) 07/16/18 05:00 PT 12.9 SECONDS (9.4-12.5) H 07/15/18 11:32 INR 1.14 07/15/18 11:32 APTT 26.3 Seconds (26.9-38.3) L 07/15/18 11:32 Sodium 139 mmol/L (132-148) 07/16/18 05:00 Potassium 3.7 mmol/L (3.6-5.0) 07/16/18 05:00 Chloride 104 mmol/L (98-107) 07/16/18 05:00 Carbon Dioxide 30 mmol/L (21-33) 07/16/18 05:00 Anion Gap 9 (10-20) L 07/16/18 05:00 BUN 13 mg/dL (7-21) 07/16/18 05:00 Creatinine 0.9 mg/dl (0.8-1.5) 07/16/18 05:00 Est GFR ( Amer) > 60 07/16/18 05:00 Est GFR (Non-Af Amer) > 60 07/16/18 05:00 Random Glucose 97 mg/dL (70-110) 07/16/18 05:00 Hemoglobin A1c 6.1 % (4.2-6.5) 07/15/18 17:30 Calcium 9.0 mg/dL (8.4-10.5) 07/16/18 05:00 Phosphorus 3.3 mg/dL (2.5-4.5) 07/16/18 05:00 Magnesium 1.9 mg/dL (1.7-2.2) 07/16/18 05:00 Total Bilirubin 0.4 mg/dL (0.2-1.3) 07/16/18 05:00 AST 32 U/L (17-59) 07/16/18 05:00 ALT 21 U/L (7-56) 07/16/18 05:00 Alkaline Phosphatase 79 U/L (38-126) 07/16/18 05:00 Lactate Dehydrogenase 428 U/L (333-699) 07/15/18 11:32 Total Creatine Kinase 147 U/L (35-230) 07/15/18 11:32 Troponin I 0.02 ng/mL D 07/15/18 23:30 NT-Pro-B Natriuret Pep 12.0 pg/mL (0-450) 07/15/18 11:32 Total Protein 7.3 g/dL (5.8-8.3) 07/16/18 05:00 Albumin 3.7 g/dL (3.0-4.8) 07/16/18 05:00 Globulin 3.6 gm/dL 07/16/18 05:00 Albumin/Globulin Ratio 1.0 (1.1-1.8) L 07/16/18 05:00 Triglycerides 157 mg/dL (35-160) 07/16/18 05:00 Cholesterol 194 mg/dL (130-200) 07/16/18 05:00 LDL Cholesterol Direct 133 mg/dL (0-129) H 07/16/18 05:00 HDL Cholesterol 31 mg/dL (29-60) 07/16/18 05:00 Amylase 76 U/L (35-125) 07/15/18 11:32 Lipase 65 U/L (23-300) 07/15/18 11:32 TSH 3rd Generation 2.09 mIU/mL (0.46-4.68) 07/15/18 17:20 Urine Color Yellow (YELLOW) 07/15/18 15:48 Urine Appearance Clear (CLEAR) 07/15/18 15:48 Urine pH 7.0 (4.7-8.0) 07/15/18 15:48 Ur Specific [place] 1.015 (1.005-1.035) 07/15/18 15:48 Urine Protein Negative mg/dL (<30 mg/dL) 07/15/18 15:48 Urine Glucose (UA) Negative mg/dL (NEGATIVE) 07/15/18 15:48 Urine Ketones Negative mg/dL (NEGATIVE) 07/15/18 15:48 Urine Blood Small (NEGATIVE) H 07/15/18 15:48 Urine Nitrate Negative (NEGATIVE) 07/15/18 15:48 Urine Bilirubin Negative (NEGATIVE) 07/15/18 15:48 Urine Urobilinogen 0.2 E.U./dL (<1 E.U./dL) 07/15/18 15:48 Ur Leukocyte Esterase Negative Suresh/uL (NEGATIVE) 07/15/18 15:48 Urine RBC 2 - 5 /hpf (0-2) H 07/15/18 15:48 Urine WBC 0 - 2 /hpf (0-6) 07/15/18 15:48 Ur Epithelial Cells 0 - 2 /hpf (0-5) 07/15/18 15:48 Attending/Attestation - Attestation I have personally seen and examined this patient.: Yes I have fully participated in the care of the patient.: Yes I have reviewed all pertinent clinical information, including history, physical exam and plan: Yes Notes (Text): 07/16/18 13:54 Medical record note made by the resident after discussion with my direction and input after the patient was personally seen and examined by me. I have reviewed the chart and agree that the record accurately reflects by personal performance of the history, physical exam, data review, and medical decision-making, in the course for the patient. I have also personally directed the plan of care. 58 year obese old male with past medical history of hypertension, glaucoma, hyperlipidemia, GERD, bilateral feet surgery, was admitted with atypical chest pain.EKG is negative for ischemic changes.Serial troponins are normal.Telemetry is unremarkable for arrhythmia. Echo showed normal systolic function. Patient has been evaluated by cardiology and out patient stress test is recommended.He will be discharged home and will follow up with PCP and cardiology. Management plan was discussed in detail with patient. Education was provided.
[2018-07-16 13:45] VITALS: PULSE 61
--- NOTE | 2018-07-16 15:34 | CARD ---
APPROVED REPORT Date of service: 07/16/2018 EXAM: Two-dimensional and M-mode echocardiogram with Doppler and color Doppler. INDICATION LVFX 2D DIMENSIONS Left Atrium (2D)4.8 (1.6-4.0cm)IVSd1.2 (0.7-1.1cm) LVDd5.1 (3.9-5.9cm)PWd1.3 (0.7-1.1cm) LVDs3.4 (2.5-4.0cm)FS (%) 32.0 % LVEF (%)60.0 (>50%) M-Mode DIMENSIONS Aortic Root3.20 (2.2-3.7cm)Aortic Cusp Exc.1.60 (1.5-2.0cm) Aortic Valve AoV Peak Nnfkipkl674.0cm/Twin Peak GR.11mmHg Mitral Valve MV E Sukopoeg25.9cm/sMV A Ztyodsco12.1cm/sE/A ratio0.7 TDI Lateral E' Peak V6.82cm/sMedial E' Peak V6.14cm/sE/Lateral E'7.3 E/Medial E'8.1 Pulmonary Valve PV Peak Lwymilnj34.7cm/sPV Peak Grad.4mmHg Tricuspid Valve TR Peak [id number]/sRAP [id number] Peak Gr.26mmHg [id number] LEFT VENTRICLE The left ventricle is normal size. There is mild concentric left ventricular hypertrophy. The left ventricular function is normal.EF-55-60% There is normal LV segmental wall motion. Transmitral Doppler flow pattern is Grade III-reversible restrictive diastolic dysfunction. No left ventricle thrombus noted on this study. There is no ventricular septal defect visualized. There is no left ventricular aneurysm. There is no mass noted in the left ventricle. RIGHT VENTRICLE The right ventricle is normal size. There is normal right ventricular wall thickness. The right ventricular systolic function is normal. ATRIA The left atrium is mild to moderate dilated. The right atrium is borderline dilated. The interatrial septum is intact with no evidence for an atrial septal defect. AORTIC VALVE The aortic valve is thickened but opens well. There is trace aortic regurgitation. There is no aortic valvular stenosis. There is no aortic valvular vegetation. MITRAL VALVE The mitral valve is thickened but opens well. Mitral regurgitation is mild. There is no mitral valve stenosis. There is no evidence of mitral valve prolapse. TRICUSPID VALVE The tricuspid valve leaflets are thickened , but open well. There is trace to mild tricuspid regurgitation.RVSP-36 mmof Hg There is no tricuspid valve stenosis. There is no tricuspid valve prolapse or vegetation. PULMONIC VALVE The pulmonary valve is normal in structure. There is trace pulmonic valvular regurgitation. There is no pulmonic valvular stenosis. GREAT VESSELS The aortic root is normal in size. The ascending aorta is normal in size. The pulmonary artery is normal. The IVC is normal in size and collapses >50% with inspiration. PERICARDIAL EFFUSION There is no pleural effusion. There is no pericardial effusion. <Conclusion> The left ventricle is normal size. There is mild concentric left ventricular hypertrophy. The left ventricular function is normal.EF-55-60% There is trace aortic regurgitation. Mitral regurgitation is mild. There is trace to mild tricuspid regurgitation.RVSP-36 mmof Hg There is trace pulmonic valvular regurgitation. The IVC is normal in size and collapses >50% with inspiration. There is no pericardial effusion. There is no pericardial effusion. No vegetation or thrombus noted.
--- NOTE | 2018-07-16 20:24 | CARD ---
APPROVED REPORT Date of service: 07/16/2018 EKG Measurement Heart [id number] MN 150P3 [id number] <Conclusion> Sinus bradycardia Otherwise normal ECG
[2018-07-16] MEDS ORDERED: Latanoprost 2.5 ml Opht Soln OU SCH (22:00)
== END 2018-07-16 14:18 | disposition home or self-care (01) ==
LOC: ED 10:59 → ERH 13:59 → 3RSO 16:40
PROVIDERS: ADMIT Internal Medicine; ATTEND Internal Medicine
DX: R07.89 Other chest pain (principal); I10 Essential (primary) hypertension; E78.00 Pure hypercholesterolemia, unspecified; E78.5 Hyperlipidemia, unspecified; E66.9 Obesity, unspecified; H40.9 Unspecified glaucoma; K21.9 Gastro-esophageal reflux disease without esophagitis; Z83.3 Family history of diabetes mellitus; H33.20 Serous retinal detachment, unspecified eye
CPT/HCPCS: 36415; 71045; 76705; 80053; 80061; 81001; 82150; 82550; 83036; 83615; 83690; 83735; 83880; 84100; 84443; 84484; 85025; 85610; 85730; 93005; 93306; 99285; G0378; J1650